=== PATIENT | female | born 1975 | race Native Hawaiian/Other Pacific Islander ===

== ENCOUNTER 2017-04-10 16:16 | Emergency (ER) | payer OTHER ==
[~2017-04-10] VITALS: Ht 149.9 cm; Wt 65.5 kg
[2017-04-10] MEDS ORDERED: AMLO5TAB2 (16:44)
[2017-04-10] MEDS ORDERED: OXYC1TAB16 (16:44)
[2017-04-10] MEDS ORDERED: ACETAMINOPHEN-COD (16:44)
[2017-04-10] MEDS ORDERED: PERCOCET 5MG/325MG TAB PO ONE (17:30)
--- NOTE | 2017-04-10 18:30 | REP ---
Left knee, complete: 04/10/2017 Clinical history: Knee pain and swelling. Findings: Five views are provided. No visible or displaced fracture, avulsion or subluxation. I see no definite joint effusion on the sunrise view. No joint space narrowing. Very minimal degenerative spurring medial joint line and patellar articular margins. No osteochondral defect or loose body. Impression: 1. Minimal spurring medial joint line and patellofemoral joint with no joint effusion, loose body, osteochondral defect or other acute. No visible fracture. Signed by Charanjit Helm MD 04/10/2017 09:27 P
[2017-04-10 18:52] VITALS: BP 127/97
[2017-04-10] MEDS ORDERED: HYDR-3713 PO (19:03)
[2017-04-10] MEDS ORDERED: IBUP80TA PO (19:03)
== END 2017-04-10 19:19 | disposition home or self-care (01) ==
LOC: M ED 16:16
DX: M70.42 Prepatellar bursitis, left knee (principal); I10 Essential (primary) hypertension; E78.5 Hyperlipidemia, unspecified; M19.90 Unspecified osteoarthritis, unspecified site; Z79.899 Other long term (current) drug therapy